=== PATIENT | male | born 1985 | race Caucasian/White ===

== ENCOUNTER → 2018-05-15 | Outpatient (CLI) | payer OTHER ==
--- NOTE | 2018-05-15 11:25 | US ---
EXAMINATION TYPE: US venous doppler duplex LE BI DATE OF EXAM: 05/15/2018 10:33 AM COMPARISON: NONE CLINICAL HISTORY: R22.42,R22.41 Left/right lower limb edema. Bilateral leg swelling. On testosterone every 2 weeks. SIDE PERFORMED: Bilateral TECHNIQUE: The lower extremity deep venous system is examined utilizing real time linear array sonog trey with graded compression, doppler sonography and color-flow sonography. VESSELS IMAGED: External Iliac Vein (EIV) Common Femoral Vein Deep Femoral Vein Greater Saphenous Vein * Femoral Vein Popliteal Vein Small Saphenous Vein * Proximal Calf Veins (* superficial vessels) Limited exam due to patient body habitus Right Leg: Negative for DVT Left Leg: Negative for DVT Grayscale, color doppler, spectral doppler imaging performed of the deep veins of the lower extremiti es. There is normal flow, compressibility, vascular waveforms. IMPRESSION: No sonographic evidence of deep venous thrombosis within the bilateral lower extremities .
== END | disposition home or self-care (01) ==
LOC: RADUSWWP 10:31
PROVIDERS: ATTEND Family Medicine
DX: R22.43 Localized swelling, mass and lump, lower limb, bilateral (principal)
CPT/HCPCS: 93970

== ENCOUNTER → 2018-06-03 | Outpatient (CLI) | payer OTHER ==
--- NOTE | 2018-06-04 09:46 | ECHOF ---
Referral Reason:R07.9 Chest pain MEASUREMENTS -------- HEIGHT: 175.3 cm WEIGHT: 158.8 kg BP: RVIDd: 3.0 cm (< 3.3) IVSd: 1.3 cm (0.6 - 1.1) LVIDd: 5.2 cm (3.9 - 5.3) LVPWd: 1.2 cm (0.6 - 1.1) IVSs: 1.5 cm LVIDs: 3.2 cm LVPWs: 1.5 cm LAESV Index (A-L): 22.43 ml/m Ao Diam: 3.3 cm (2.0 - 3.7) AV Cusp: 2.1 cm (1.5 - 2.6) LA Diam: 3.6 cm (2.7 - 3.8) EPSS: 0.3 cm MV E Mushtaq: 0.93 m/s MV DecT: 221 ms MV A Mushtaq: 0.64 m/s MV E/A Ratio: 1.45 RAP: 5.00 mmHg RVSP: 10.93 mmHg MV EF SLOPE: 117.78 mm/s (70 - 150) MV EXCURSION: 2.30 cm (> 18.000) FINDINGS -------- Sinus rhythm. This was a technically difficult study with suboptimal views. The left ventricular size is normal. There is mild concentric left ventricular hypertrophy. Overa ll left ventricular systolic function is normal with, an EF between 55 - 60 %. The right ventricle is normal in size and function. Normal LA size by volume 22+/-6 ml/m2. The right atrium is normal in size. 3ml of Lumason was utilized for enhancement of images. The aortic valve is trileaflet, and appears structurally normal. No aortic stenosis or regurgitation. The mitral valve is normal. There is trace to mild mitral regurgitation. Trace tricuspid regurgitation present. Right ventricular systolic pressure is normal at < 35 mmHg. There is no evidence of pulmonary hypertension. Trace/mild (physiologic) pulmonic regurgitation. The aortic root size is normal. Normal inferior vena cava with normal inspiratory collapse consistent with estimated right atrial pre ssure of 5 mmHg. There is no pericardial effusion. CONCLUSIONS -------- 1. Sinus rhythm. 2. This was a technically difficult study with suboptimal views. 3. The left ventricular size is normal. 4. There is mild concentric left ventricular hypertrophy. 5. Overall left ventricular systolic function is normal with, an EF between 55 - 60 %. 6. Normal LA size by volume 22+/-6 ml/m2. 7. 3ml of Lumason was utilized for enhancement of images. 8. The aortic valve is trileaflet, and appears structurally normal. No aortic stenosis or regurgitati on. 9. There is trace to mild mitral regurgitation. 10. Trace tricuspid regurgitation present. 11. Right ventricular systolic pressure is normal at < 35 mmHg. 12. There is no evidence of pulmonary hypertension. 13. Trace/mild (physiologic) pulmonic regurgitation. 14. The aortic root size is normal. 15. There is no pericardial effusion. [employer]ISTRY DIRECTOR: Amandeep Gautam RDCS
== END | disposition home or self-care (01) ==
LOC: RADECHMAIN 08:35
PROVIDERS: ATTEND Family Medicine
DX: I34.0 Nonrheumatic mitral (valve) insufficiency (principal); I51.7 Cardiomegaly
CPT/HCPCS: C8929; Q9950; 93306

== ENCOUNTER 2019-08-05 07:18 | Inpatient (IN) | payer OTHER ==
[2019-08-05] MEDS ORDERED: KETOROLAC 30 MG/ML 1 ML VIAL IVP STA (07:43)
--- NOTE | 2019-08-05 08:15 | ED ---
Chest Pain HPI - General Chief Complaint: Chest Pain Stated Complaint: chest pain, SOB Time Seen by Provider: 08/05/19 07:24 Source: patient, RN notes reviewed Mode of arrival: ambulatory Limitations: no limitations - History of Present Illness Initial Comments: This is a 34-year-old male with a benign history other than previous episodes of chest pain he is a smoker who states he had the onset around 3 AM this morning of right upper quadrant lower chest pain was sharp in nature 7/10 severity does seem to go to his back into his right shoulder blade he states. It increases with deep breathing and certain movements he had no fevers chills nausea vomiting sweats no phlegm production he does have a dry cough or other symptoms reported. No known history of GI complaints. MD Complaint: chest pain - Related Data Home Medications Medication Instructions Recorded Confirmed Albuterol Sulfate [Proair Hfa] 2 puff INHALATION RT-Q6H PRN 08/05/19 08/05/19 Ibuprofen [Motrin Ib] 400 mg PO Q6H PRN 08/05/19 08/05/19 Allergies Allergy/AdvReac Type Severity Reaction Status Date / Time No Known Allergies Allergy Verified 08/05/19 08:59 Review of Systems ROS Statement: Those systems with pertinent positive or pertinent negative responses have been documented in the HPI. ROS Other: All systems not noted in ROS Statement are negative. EKG Findings - EKG Comments: EKG Findings:: Ventricular rate is 79 TX interval 120, QRS 112, QT/QTC 374/428 - EKG Results: EKG: interpreted by LAUREN WALSH, sinus rhythm, normal axis, normal QRS, normal ST/T, no acute changes Past Medical History Past Medical History: Asthma, Thyroid Disorder Additional Past Medical History / Comment(s): Hemorrhoids; Folliculosis History of Any Multi-Drug Resistant Organisms: None Reported Past Surgical History: No Surgical Hx Reported Past Psychological History: ADD/ADHD, Anxiety, Bipolar, Depression, PTSD Smoking Status: Current every day smoker Past Alcohol Use History: None Reported Past Drug Use History: Marijuana General Exam - General Exam Comments Initial Comments: This a well-developed well-nourished awake alert oriented 3 male Limitations: no limitations General appearance: alert, anxious, in distress Head exam: Present: atraumatic, normocephalic, normal inspection Eye exam: Present: normal appearance, PERRL, EOMI. Absent: scleral icterus, conjunctival injection, periorbital swelling ENT exam: Present: normal exam, mucous membranes moist Neck exam: Present: normal inspection, full ROM, other (No stridor JVD or bruits). Absent: tenderness, meningismus, lymphadenopathy Respiratory exam: Present: decreased breath sounds. Absent: respiratory distress, wheezes, rales, rhonchi, stridor Cardiovascular Exam: Present: regular rate, normal rhythm, normal heart sounds. Absent: systolic murmur, diastolic murmur, rubs, gallop, clicks GI/Abdominal exam: Present: soft, tenderness (Right upper quadrant tenderness palpation no guarding rebound masses or bruits obese abdomen is demonstrated), normal bowel sounds. Absent: distended, guarding, rebound, rigid Rectal exam: Present: deferred Extremities exam: Present: normal inspection, full ROM, normal capillary refill. Absent: tenderness, pedal edema, joint swelling, calf tenderness Back exam: Present: normal inspection Neurological exam: Present: alert, oriented X3, CN II-XII intact Psychiatric exam: Present: normal affect, normal mood Skin exam: Present: warm, dry, intact, normal color. Absent: rash Course Vital Signs 08/05/19 08/05/19 08/05/19 07:20 07:31 08:00 Temperature 97.9 F Pulse Rate 78 73 Respiratory 18 21 20 Rate Blood Pressure 140/82 144/79 144/79 O2 Sat by Pulse 97 94 L Oximetry 08/05/19 08/05/19 08:30 08:52 Temperature 98.0 F 98.0 F Pulse Rate 71 71 Respiratory 20 20 Rate Blood Pressure 154/100 154/100 O2 Sat by Pulse 97 97 Oximetry Procedures - Smoking Cessation Time Spent Discussing Smoking Cessation w/Patient (Minutes): 3 Patient Acknowledges Need for Cessation: No Chest Pain MDM - MDM I did review the imaging and report evidence of mildly dilated common bile duct limited due to patient's habitus. X-rays unremarkable. Patient still has pain especially with palpation elevated white blood cell count left shift the clinical presentation is consistent with acute cholecystitis. I did discuss the case with Dr. Wood the patient will be admitted with consultation to Dr. Pate Disposition Clinical Impression: Acute cholecystitis, Atypical chest pain Disposition: ADMITTED IP TO THIS [facility] Condition: Fair Referrals: Kyle Wood MD [Primary Care Provider] - 1-2 days
[2019-08-05 08:18] LABS: ALT 37 U/L (21-72); AST 27 U/L (17-59); African American GFR (CKD) >90 (>60 ml/min/1.73 sqM); Alkaline Phosphatase 108 U/L (38-126); Anion Gap 8 mmol/L; Blood Urea Nitrogen 13 mg/dL (9-20); Calcium 9.2 mg/dL (8.4-10.2); Carbon Dioxide 27 mmol/L (22-30); Chloride 107 mmol/L (98-107); Creatine Kinase 144 U/L (55-170); Glucose 104 mg/dL (74-99); Potassium 4.3 mmol/L (3.5-5.1); Sodium 142 mmol/L (137-145); Total Bilirubin 0.5 mg/dL (0.2-1.3); Total Protein 7.5 g/dL (6.3-8.2)
[2019-08-05 08:19] LABS: Basophils # (A) 0.2 k/uL (0-0.2); Basophils % (A) 1 %; Eosinophils # (A) 0.5 k/uL (0-0.7); Eosinophils % (A) 4 %; HCT 44.2 % (39.0-53.0); HGB 14.8 gm/dL (13.0-17.5); Lymphocytes # (A) 2.8 k/uL (1.0-4.8); Lymphocytes % (A) 21 %; MCH 30.5 pg (25.0-35.0); MCHC 33.4 g/dL (31.0-37.0); MCV 91.3 fL (80.0-100.0); Mean Platelet Volume 7.1; Monocytes # (A) 0.8 k/uL (0-1.0); Monocytes % (A) 6 %; Neutrophils # (A) 8.7 k/uL (1.3-7.7); Neutrophils % (A) 66 %; Platelet Count 289 k/uL (150-450); RBC 4.84 m/uL (4.30-5.90); RDW 13.2 % (11.5-15.5); WBC 13.3 k/uL (3.8-10.6)
--- NOTE | 2019-08-05 08:20 | XR ---
EXAMINATION TYPE: XR chest 2V DATE OF EXAM: 08/05/2019 COMPARISON: 10/21/2013 HISTORY: Chest pain TECHNIQUE: Frontal and lateral views of the chest are obtained. FINDINGS: There is no focal air space opacity. No evidence for pneumothorax. No pleural effusion. The cardiac silhouette size is within normal limits. The osseous structures are grossly intact. IMPRESSION: 1. No acute cardiopulmonary process.
[2019-08-05 08:32] LABS: D-Dimer 0.33 mg/L FEU (<0.60); INR 0.9 (<1.2); Partial Thromboplastin Time 26.8 sec (22.0-30.0); Prothrombin Time 10.2 sec (9.0-12.0)
--- NOTE | 2019-08-05 09:00 | US ---
EXAMINATION TYPE: US gallbladder DATE OF EXAM: 08/05/2019 COMPARISON: CT dated 07/30/2016 CLINICAL HISTORY: Right upper quadrant pain, radiation to the right . large body habitus 360lbs, RUQ pain today with right shoulder pain EXAM MEASUREMENTS: Liver Length: 19.9 cm Gallbladder Wall: 0.2 cm CBD: 0.6 cm Right Kidney: 10.8 x 5.1 x 6.0 cm limited imaging due to body habitus and bowel gas Pancreas: portions seen appear wnl Liver: very difficult to penetrate, enlarged, mostly intercostal imaging Gallbladder: wnl Evidence for sonographic Motley's sign: no CBD: Mildly dilated Right Kidney: wnl,, cortical measured differentiation is maintained. Exam is limited by patient body habitus. No ascites. IMPRESSION: Correlate for hepatic steatosis. There is hepatomegaly. Mild dilation of the common hepat ic duct. Limited exam.
[2019-08-05] MEDS ORDERED: PIPERACILLIN-TAZOBACTAM 3.375 GM in SODIUM CHLORIDE 0.9% 100 ML IVPB STA (10:45)
[2019-08-05] MEDS ORDERED: fentaNYL (PF) 50 MCG/ML 2 ML AMP IV STA (10:45)
[2019-08-05] MEDS ORDERED: ONDANSETRON 4 MG/2 ML VIAL IVP PRN (10:48)
[2019-08-05] MEDS ORDERED: NALOXONE 0.4 MG/ML 1 ML VIAL IV PRN (10:48)
[2019-08-05] MEDS ORDERED: ALBUTEROL NEBULIZED 2.5 MG/3 ML INHALATION PRN (10:51)
[2019-08-05] MEDS: SODIUM CHLORIDE 0.9% 1,000 ML IV SCH ×2 (11:20→22:16)
--- NOTE | 2019-08-05 17:53 | NM ---
EXAMINATION TYPE: NM hepatobiliary w CCK DATE OF EXAM: 08/05/2019 COMPARISON: NONE INDICATION: Cholecystitis TECHNIQUE: After the intravenous administration of 5.2 mCi Tc 99m Mebrofenin hepatobiliary scintigrap hy is performed. Images were obtained immediately post injection. FINDINGS: There is prompt uptake and excretion of radiotracer by the liver. Extrahepatic ducts are identified at 8 minutes. The gallbladder is visualized within 4 minutes. Small bowel activity is noted within 18 minutes. At one hour CCK was administered, patient was injected with 3.4 mcg of Kinevac, and gallbladder eject ion fraction is calculated at 79% %, which is in the normal range.. (Normal >35% and <80%.). IMPRESSION: 1. Normal hepatobiliary scan. Ejection fraction is at the upper limits of normal.
[2019-08-05] MEDS: HYDROmorphone 1 MG/ML 1 ML SYRINGE IVP PRN ×2 (18:05→22:12)
[2019-08-05] MEDS: PIPERACILLIN-TAZOBACTAM 3.375 GM in SODIUM CHLORIDE 0.9% 100 ML IVPB SCH (18:05)
[2019-08-05 18:19] LABS: Glucose,Whole Blood 87 mg/dL (75-99)
[2019-08-05 20:24] LABS: Glucose,Whole Blood 125 mg/dL (75-99)
[2019-08-06] MEDS: HYDROmorphone 1 MG/ML 1 ML SYRINGE IVP PRN ×5 (02:05→23:45)
[2019-08-06] MEDS: PIPERACILLIN-TAZOBACTAM 3.375 GM in SODIUM CHLORIDE 0.9% 100 ML IVPB SCH ×4 (02:35→23:41)
[2019-08-06] MEDS: SODIUM CHLORIDE 0.9% 1,000 ML IV SCH ×3 (05:03→20:47)
[2019-08-06 06:47] LABS: Glucose,Whole Blood 104 mg/dL (75-99)
[2019-08-06] MEDS: NICOTINE 21MG/24HR PATCH TRANSDERM SCH (07:37)
[2019-08-06] MEDS: PANTOPRAZOLE 40 MG/10 ML VIAL IV SCH (07:37)
--- NOTE | 2019-08-06 11:07 | P.CRDCN ---
History of Present Illness History of present illness: This is a pleasant 34-year-old male past medical history significant for asthma, gastroesophageal reflux disease, bilateral DVT's while receiving testosterone injections, schizophrenia, morbid obesity and chronic nicotine dependence. He denies prior history of hypertension, dyslipidemia, diabetes mellitus or coronary artery disease. We have been asked to see him in consultation for preoperative evaluation secondary to sinus pauses noted on telemetry. He presented to the hospital with symptoms of right upper quadrant pain. He states the pain is sharp and radiates up to the right shoulder and is associated with nausea. He underwent an ultrasound of his gallbladder revealing hepatic steatosis, hepatomegaly and mild dilation of the common hepatic duct. HIDA scan reveals a normal hepatobiliary scan with ejection fraction calculated at 79%. EKG reveals sinus mechanism with no acute ST or T wave abnormalities noted heart rate of 79. Telemetry tracings reveal he is having sinus pauses longest being 3 seconds. These pauses are variable times. It is unclear if he is sleeping at the time. The pauses are occurring during awake hours however this morning he had one that was 2.5 seconds and he states that time he was sitting up in the chair sleeping. He denies symptoms of chest pain, shortness of breath, dizziness or palpitations. Laboratory data reviewed, WBC 13.3, hemoglobin 14.8, platelets 289, d-dimer 0.33, sodium 142, potassium 4.3, creatinine 0.71, magnesium 2.0, cardiac enzymes negative 1, proBNP 34, TSH 4.47. Daily medications include albuterol and Motrin as needed. At the time of my exam: CONSTITUTIONAL: Denies fever. Denies chills. EYES: Denies blurred vision. Denies vision changes. Denies eye pain. EARS, NOSE, MOUTH & THROAT: Denies headache. Denies sore throat. Denies ear pain. CARDIOVASCULAR: Denies chest pain. Denies shortness of breath. Denies orthopnea. Denies PND. Denies palpitations. RESPIRATORY: Denies cough. GASTROINTESTINAL: Complains of right upper quadrant abdominal pain. Denies diarrhea. Denies constipation. Denies nausea. Denies vomiting. MUSCULOSKELETAL: Denies myalgias. INTEGUMENTARY: Denies pruitis. Denies rash. NEUROLOGIC: Denies numbness. Denies tingling. Denies weakness. PSYCHIATRIC: Denies anxiety. Denies depression. ENDOCRINE: Denies fatigue. Denies weight change. Denies polydipsia. Denies polyurina. GENITOURINARY: Denies burning, hematuria or urgency with micturation. HEMATOLOGIC: Denies history of anemia. Denies bleeding. Blood pressure 117/60 heart rate 78 afebrile maintaining oxygen saturation on room air GENERAL: This is a 34-year-old male in no apparent distress at the time of my examination. Obese. HEENT: Head is atraumatic, normocephalic. Pupils are equal, round. Sclerae ani cteric. Conjunctivae are clear. Mucous membranes of the mouth are moist. Neck is supple. There is no jugular venous distention. No carotid bruit is heard. LUNGS: Clear to auscultation no wheezes, rales or rhonchi. No chest wall tenderness is noted on palpation or with deep breathing. HEART: Regular rate and rhythm without murmurs, rubs or gallops. S1 and S2 heard. ABDOMEN: Soft, nontender. Bowel sounds are heard. No organomegaly noted. EXTREMITIES: No evidence of peripheral edema and no calf tenderness noted. VASCULAR: Radial and dorsalis pedis pulses palpated, no evidence of clubbing. NEUROLOGIC: Patient is awake, alert and oriented x3. ASSESSMENT Abdominal pain Sinus pause, less than 3 seconds Morbid obesity, BMI 51 PLAN Telemetry tracings reviewed. Likely related to underlying sleep apnea. The patient has been advised to have a sleep study performed as an outpatient. We will continue to monitor on telemetry for an additional 24 hours. Obtain 2-D echocardiogram and Doppler study to assess cardiac structure and function. Thank you kindly for this consultation. Nurse Practitioner note has been reviewed, I agree with a documented findings and plan of care. Patient was seen and examined. Past Medical History Past Medical History: Asthma, GERD/Reflux, Pneumonia, Syncope, Thyroid Disorder Additional Past Medical History / Comment(s): DVT bilateral legs-was on coumadin for one year-now discontinued, chronic low back and bilateral hip pain, hypothyroid, hemorrhoids. History of Any Multi-Drug Resistant Organisms: None Reported Past Surgical History: No Surgical Hx Reported Additional Past Surgical History / Comment(s): L orbital trauma with surgery, colonoscopy-normal Past Anesthesia/Blood Transfusion Reactions: No Reported Reaction Smoking Status: Current every day smoker - Past Family History Father Family Medical History: Hyperlipidemia Mother Family Medical History: Asthma, Diabetes Mellitus, Hyperlipidemia, Hypertension Medications and Allergies Home Medications Medication Instructions Recorded Confirmed Type Albuterol Sulfate [Proair Hfa] 2 puff INHALATION RT-Q6H PRN 08/05/19 08/05/19 History Ibuprofen [Motrin Ib] 400 mg PO Q6H PRN 08/05/19 08/05/19 History Allergies Allergy/AdvReac Type Severity Reaction Status Date / Time No Known Allergies Allergy Verified 08/05/19 08:59 Physical Exam Vitals: Vital Signs Temp Pulse Pulse Resp BP BP Pulse Ox 08/06/19 08:00 78 79 18 08/06/19 07:30 98.1 F 78 18 117/60 94 L 08/06/19 05:12 98.3 F 90 18 129/71 92 L 08/06/19 04:00 98.3 F 90 18 129/71 92 L 08/06/19 00:00 97.9 F 66 18 129/82 94 L 08/05/19 19:50 79 18 08/05/19 18:46 98.2 F 79 18 138/90 96 08/05/19 18:23 68 18 08/05/19 16:00 98.2 F 79 138/90 96 08/05/19 12:00 68 18 08/05/19 11:46 97.6 F 68 18 122/80 95 Intake and Output 08/05/19 08/06/19 08/06/19 22:59 06:59 14:59 Intake Total 240 Balance 240 Intake: Oral 240 Other: Voiding Method Toilet Toilet Toilet # Voids 1 Results 08/05/19 07:50 08/05/19 07:50 Current Medications Generic Name Dose Route Start Last Admin Trade Name Freq PRN Reason Stop Dose Admin Albuterol Sulfate 2.5 mg 08/05/19 10:51 Ventolin Nebulized INHALATION RT-Q6H PRN Shortness Of Breath Hydromorphone HCl 1 mg 08/05/19 10:52 08/06/19 07:36 Dilaudid IVP 1 mg Q4HR PRN Administration Pain Sodium Chloride 1,000 mls @ 125 mls/hr 08/05/19 11:00 08/06/19 05:03 Saline 0.9% IV Not Given .Q8H NEISHA Piperacillin Sod/Tazobactam 100 mls @ 25 mls/hr 08/05/19 17:00 08/06/19 07:39 Sod 3.375 gm/ Sodium Chloride IVPB 25 mls/hr Q8HR NEISHA Administration Naloxone HCl 0.2 mg 08/05/19 10:48 Narcan IV Q2M PRN Opioid Reversal Nicotine 1 patch 08/06/19 09:00 08/06/19 07:37 Habitrol 21mg/24hr Patch TRANSDERM Not Given DAILY NEISHA Ondansetron HCl 4 mg 08/05/19 10:48 Zofran IVP Q8HR PRN Nausea And Vomiting Pantoprazole Sodium 40 mg 08/06/19 09:00 08/06/19 07:37 Protonix IV 40 mg DAILY NEISHA Administration Intake and Output 08/05/19 08/06/19 08/06/19 22:59 06:59 14:59 Intake Total 240 Balance 240 Intake: Oral 240 Other: Voiding Method Toilet Toilet Toilet # Voids 1 08/05/19 07:50 08/05/19 07:50
[2019-08-06 11:51] LABS: Glucose,Whole Blood 107 mg/dL (75-99)
--- NOTE | 2019-08-06 13:34 | P.GSCN ---
History of Present Illness Consult date: 08/06/19 Reason for Consult: Right upper quadrant pain Requesting physician: Mj Stafford History of present illness: CHIEF COMPLAINT: Right upper quadrant pain HISTORY OF PRESENT ILLNESS: 34-year-old male who presented to the emergency room chief complaint of abdominal pain. Patient reports he began having right upper quadrant pain yesterday around 0300 that woke him up while he was sleeping. He reports some nausea but denies emesis. Denies diarrhea or constipation. Patient denies previous episodes of this type of pain. PAST MEDICAL HISTORY: See list. PAST SURGICAL HISTORY: See list. SOCIAL HISTORY: No illicit drug use. REVIEW OF SYSTEMS: CONSTITUTIONAL: Denies fever or chills. HEENT: Denies blurred vision, vision changes, or eye pain. Denies hemoptysis CARDIOVASCULAR: Denies chest pain or pressure. RESPIRATORY: No shortness of breath. GASTROINTESTINAL: Refer to HPI for pertinent findings HEMATOLOGIC: Denies bleeding disorders. Reports history of DVT GENITOURINARY: Denies any blood in urine. SKIN: Denies pruitis. Denies rash. PHYSICAL EXAM: VITAL SIGNS: Reviewed. GENERAL: Well-developed in no acute distress. HEENT: No sclera icterus. Extraocular movements grossly intact. Moist buccal mucosa. Head is atraumatic, normocephalic. ABDOMEN: Soft. Nondistended. Tenderness on palpation of right upper quadrant. Positive bowel sounds. No peritoneal signs NEUROLOGIC: Alert and oriented. Cranial nerves II through XII grossly intact. LABORATORY DATA: WBC 13.3. Hemoglobin 14.8. Platelet count 289. D-dimer 0.33. Sodium 142. Potassium 4.3. BUN 13. Crit 0.71. Bilirubin 0.5. AST 27. ALT 37. IMAGIN. Ultrasound gallbladder: Correlate for hepatic steatosis. There is hepatomegaly. Mild dilation of common hepatic duct. 2. HIDA scan: Reveals ejection fraction of 79%. ASSESSMENT: 1. Right upper quadrant abdominal pain 2. Clinical features of biliary dyskinesia with HIDA scan revealing ejection fraction of upper limits of normal at 79% 3. Leukocytosis 4. History of DVT PLAN: Clear liquid diet. NPO at midnight. Pain control Incentive spirometry Activity as tolerated Monitor WBC. Continue Zosyn Patient having 2-3 second pauses this morning on telemetry. Consult cardiology for evaluation and surgical clearance. Patient will tentatively be scheduled for laparoscopic cholecystectomy tomorrow Nurse practitioner note has been reviewed by physician. Signing provider agrees with the documented findings, assessment, and plan of care. Past Medical History Past Medical History: Asthma, GERD/Reflux, Pneumonia, Syncope, Thyroid Disorder Additional Past Medical History / Comment(s): DVT bilateral legs-was on coumadin for one year-now discontinued, chronic low back and bilateral hip pain, hypothyroid, hemorrhoids. History of Any Multi-Drug Resistant Organisms: None Reported Past Surgical History: No Surgical Hx Reported Additional Past Surgical History / Comment(s): L orbital trauma with surgery, colonoscopy-normal Past Anesthesia/Blood Transfusion Reactions: No Reported Reaction Smoking Status: Current every day smoker - Past Family History Father Family Medical History: Hyperlipidemia Mother Family Medical History: Asthma, Diabetes Mellitus, Hyperlipidemia, Hypertension Medications and Allergies Home Medications Medication Instructions Recorded Confirmed Type Albuterol Sulfate [Proair Hfa] 2 puff INHALATION RT-Q6H PRN 08/05/19 08/05/19 History Ibuprofen [Motrin Ib] 400 mg PO Q6H PRN 08/05/19 08/05/19 History Allergies Allergy/AdvReac Type Severity Reaction Status Date / Time No Known Allergies Allergy Verified 08/05/19 08:59 Surgical - Exam Vital Signs Temp Pulse Resp BP Pulse Ox 97.9 F 78 18 140/82 97 08/05/19 07:20 08/05/19 07:20 08/05/19 07:20 08/05/19 07:20 08/05/19 07:20 Results - Labs 08/05/19 07:50 08/05/19 07:50 Abnormal Lab Results - Last 24 Hours (Table) 08/05/19 08/06/19 Range/Units 20:22 06:45 POC Glucose (mg/dL) 125 H 104 H (75-99) mg/dL
--- NOTE | 2019-08-06 13:40 | ECHOF ---
Referral Reason:sinus pauses, cp MEASUREMENTS -------- HEIGHT: 177.8 cm WEIGHT: 163.3 kg BP: 117/60 IVSd: 1.3 cm (0.6 - 1.1) LVIDd: 4.6 cm (3.9 - 5.3) LVPWd: 1.2 cm (0.6 - 1.1) IVSs: 1.6 cm LVIDs: 3.6 cm LVPWs: 1.5 cm LAESV Index (A-L): 25.34 ml/m Ao Diam: 3.0 cm (2.0 - 3.7) AV Cusp: 2.5 cm (1.5 - 2.6) MV EXCURSION: 20.468 mm (> 18.000) MV EF SLOPE: 118 mm/s (70 - 150) EPSS: 0.4 cm MV E Mushtaq: 1.23 m/s MV DecT: 193 ms MV A Mushtaq: 0.55 m/s MV E/A Ratio: 2.25 FINDINGS -------- Resting bradycardia (HR<60bpm). This was a technically difficult study with suboptimal views. Morbid Obesity The left ventricular size is normal. There is moderate concentric left ventricular hypertrophy. O verall left ventricular systolic function is low-normal with, an EF between 50 - 55 %. The diastoli c filling pattern is normal for the age of the patient 9.57. The right ventricle is normal in size. Normal LA size by volume 22+/-6 ml/m2. The right atrial size is normal. 5.0mg of Lumason was utilized for enhancement of images Interatrial and interventricular septum intact. There is no evidence of aortic regurgitation. There is no evidence of aortic stenosis. No mitral regurgitation. Possible Vegetation attached to mvl The tricuspid valve was not well visualized. Unable to estimate RVSP due to inadequate TR jet spect ral doppler profile. There is no pulmonic regurgitation present. The aortic root size is normal. IVC Not well visulized. There is no pericardial effusion. CONCLUSIONS -------- 1. Resting bradycardia (HR<60bpm). 2. This was a technically difficult study with suboptimal views. 3. Morbid Obesity 4. The left ventricular size is normal. 5. There is moderate concentric left ventricular hypertrophy. 6. Overall left ventricular systolic function is low-normal with, an EF between 50 - 55 %. 7. The diastolic filling pattern is normal for the age of the patient 9.57 8. The right ventricle is normal in size. 9. Normal LA size by volume 22+/-6 ml/m2. 10. The right atrial size is normal. 11. 5.0mg of Lumason was utilized for enhancement of images 12. Interatrial and interventricular septum intact. 13. There is no evidence of aortic regurgitation. 14. There is no evidence of aortic stenosis. 15. No mitral regurgitation. 16. Possible Vegetation attached to mvl 17. The tricuspid valve was not well visualized. 18. Unable to estimate RVSP due to inadequate TR jet spectral doppler profile. 19. There is no pulmonic regurgitation present. 20. The aortic root size is normal. 21. IVC Not well visulized. 22. There is no pericardial effusion. CABINET ABRASIVE SANDBLASTER: Maryse Barger RDCS
[2019-08-06 16:42] LABS: Glucose,Whole Blood 104 mg/dL (75-99)
[2019-08-06] MEDS: HEPARIN SODIUM,PORCINE 5,000 UNIT/ML 1 ML VIAL SQ SCH ×2 (16:46→23:47)
--- NOTE | 2019-08-06 19:23 | HP ---
HISTORY AND PHYSICAL CHIEF COMPLAINT: 1-day history of right upper quadrant pain. HISTORY OF PRESENT ILLNESS: This gentleman woke up with severe right upper quadrant pain. Nothing would relieve it. He came to emergency room where it was felt he probably had an acute cholecystitis. He was nauseated and did vomit. His white count was elevated in the emergency room at 13,500. REVIEW OF SYSTEMS: He has a had no jaundice, acholic stools, no history of liver disease, chest pain, shortness of breath, cough, nausea, vomiting, hematemesis, melena, hematochezia, jaundice, hepatitis, renal failure, dysuria, frequency, urgency, dark urine, diabetes, etc. Past medical history, family history and personal and social histories reveal he is not allergic to any medication. He is not really taking anything either. He does smoke. He does not drink. PHYSICAL EXAMINATION: Blood pressure 124/88, pulse of 80, respirations of 18. He is afebrile. In general, he appeared to be obese, in no acute distress. Skin color is normal. Skin is warm, dry. Lymph nodes not enlarged. Head, ears, eyes, nose, mouth, and throat were normal. Neck veins are not distended. Thyroid not enlarged. CHEST: Clear. Cardiac exam is normal. Abdomen is soft and a little bit tender in the right upper quadrant. There are no masses. Bowel sounds present. Extremities normal. Neurologically he is intact. IMPRESSION: He was admitted to the hospital with diagnoses of: 1. Right upper quadrant pain. 2. Possible cholecystitis. PLAN: 1. Bed rest. 2. IV fluids. 3. General surgery consult. SOTERO / JUSTIN: [id number] /
--- NOTE | 2019-08-06 19:32 | PN ---
PROGRESS NOTE CHIEF COMPLAINT: Right upper quadrant pain. HISTORY OF PRESENT ILLNESS: This gentleman is still having some discomfort. He has been seen by Surgery and he is going to the operating room. PHYSICAL EXAMINATION: Chest is clear. Cardiac exam is normal and he is tender in the upper abdomen. Bowel sounds are present. IMPRESSION: Cholecystitis. PLAN: Surgery today. MMODL / IJN: [id number] /
[2019-08-06 20:08] LABS: Glucose,Whole Blood 93 mg/dL (75-99)
[2019-08-06] MEDS: LACTATED RINGERS 1,000 ML IV SCH (20:46)
[2019-08-07] MEDS: SODIUM CHLORIDE 0.9% 1,000 ML IV SCH ×2 (04:27→19:21)
[2019-08-07] MEDS: HYDROmorphone 1 MG/ML 1 ML SYRINGE IVP PRN ×3 (04:33→20:36)
[2019-08-07 05:31] LABS: Basophils # (A) 0.1 k/uL (0-0.2); Basophils % (A) 1 %; Eosinophils # (A) 0.5 k/uL (0-0.7); Eosinophils % (A) 4 %; HCT 40.6 % (39.0-53.0); HGB 13.4 gm/dL (13.0-17.5); Lymphocytes % (A) 28 %; MCH 30.7 pg (25.0-35.0); MCV 92.9 fL (80.0-100.0); Mean Platelet Volume 6.2; Monocytes # (A) 0.8 k/uL (0-1.0); Monocytes % (A) 5 %; Neutrophils # (A) 8.6 k/uL (1.3-7.7); Neutrophils % (A) 60 %; Platelet Count 299 k/uL (150-450); RBC 4.37 m/uL (4.30-5.90); WBC 14.3 k/uL (3.8-10.6)
[2019-08-07 07:12] LABS: Glucose,Whole Blood 102 mg/dL (75-99)
[2019-08-07] MEDS: HEPARIN SODIUM,PORCINE 5,000 UNIT/ML 1 ML VIAL SQ SCH ×2 (08:21→17:23)
[2019-08-07] MEDS: PANTOPRAZOLE 40 MG/10 ML VIAL IV SCH (08:21)
[2019-08-07] MEDS: NICOTINE 21MG/24HR PATCH TRANSDERM SCH (09:01)
[2019-08-07] MEDS: PIPERACILLIN-TAZOBACTAM 3.375 GM in SODIUM CHLORIDE 0.9% 100 ML IVPB SCH ×2 (09:01→17:22)
[2019-08-07] MEDS ORDERED: fentaNYL (PF) 50 MCG/ML 2 ML AMP ONE ×2 (09:45→14:26)
[2019-08-07] MEDS ORDERED: IV FLUID CONTINUATION 500 ML IV ONE (10:24)
[2019-08-07] MEDS: BENZOCAINE SPRAY 1 CAN MUCOUS MEM ONE ×2 (10:24→10:32)
[2019-08-07] MEDS ORDERED: fentaNYL (PF) 50 MCG/ML 2 ML AMP IV ONE (10:32)
[2019-08-07] MEDS ORDERED: MIDAZOLAM 2 MG/2 ML VIAL IVP ONE ×2 (10:32→10:34)
--- NOTE | 2019-08-07 10:46 | P.PCN ---
Date of Procedure: 08/07/19 Operative Findings: TRANSESOPHAGEAL ECHOCARDIOGRAM [facility] CONSULTANT: DEVEN ROBERTS MD, RPVI INDICATION: This is a pleasant 34-year-old gentleman who was admitted to the hospital initially with abdominal discomfort and was diagnosed with gallbladder disease. A transthoracic echocardiogram was performed and that revealed possible vegetation on the mitral valve. The ERVIN is for more clarification. SEDATION: Conscious sedation with a sedation length of 12 minutes COMPLICATION: None PROCEDURE DESCRIPTION: After obtaining an informed consent, the patient was brought to transesophageal echocardiogram room. Pulse oximetry and heart monitors were attached to the patient. The patient throat was sprayed using lidocaine. The patient was turned into left lateral position. After that a bite guard was placed. After an appropriate conscious sedation was initiated, the transesophageal echocardiogram was advanced through a bite guard into the mid esophagus. A 2-D echocardiogram images, color Doppler images, continuous wave images, pulse-wave images, of various cardiac structure were performed. After that the transesophageal echocardiogram probe was advanced into the stomach and fixed to obtain transgastric view was. The probe was brought into the mid esophagus. Inter-atrial septum was interrogated using 2D images, color Doppler images, and then contrast study. After that transesophageal echocardiogram was withdrawn out and upon withdrawing the descending thoracic aorta all the way up to the arch was evaluated. FINDING: The left ventricular dimension and systolic function appeared to be within normal limits. The ejection fraction appears to be in the range of 55-60%. The right ventricle appeared to be of normal size and function. The left atrium and right atrium appears to be mildly dilated. The left atrial appendage appeared to be free from any thrombus. The interatrial septum appeared to be intact by color flow Doppler. We did multiple agitated saline because IV was pulled out. The aortic valve is trileaflet valve without stenosis or regurgitation. The mitral valve seems to be intact without any evidence of vegetation. There was mild mitral regurgitation only. Tricuspid valve and pulmonic valve appeared to be within normal limits as well. The aortic root appeared to be within normal limits for dimension. No evidence of pericardial effusion seen. CONCLUSION: 1. No evidence of infectious endocarditis seen 2. Normal mitral valve leaflets without any vegetation 3. Normal aortic valve without any stenosis or regurgitation 4. Normal tricuspid valve and pulmonic valve 5. Normal left ventricular dimension and systolic function. The ejection fraction appeared to be in the range of 55-60% 6. Normal right ventricular dimension and systolic function 7. Mild biatrial enlargement 8. Normal left atrial appendage 9. Intact interatrial septum by color flow Doppler. Agitated saline was not performed 10 No evidence of pericardial effusion 11. Normal aortic root dimension
--- NOTE | 2019-08-07 10:52 | P.PN ---
Subjective This is a pleasant 34-year-old male past medical history significant for asthma, gastroesophageal reflux disease, bilateral DVT's while receiving testosterone injections, schizophrenia, morbid obesity and chronic nicotine dependence. He denies prior history of hypertension, dyslipidemia, diabetes mellitus or coronary artery disease. We have been asked to see him in consultation for preoperative evaluation secondary to sinus pauses noted on telemetry. He presented to the hospital with symptoms of right upper quadrant pain. Transthoracic echocardiogram revealed preserved LV systolic function with ejection fraction 50-55% there was a questionable vegetation on the mitral valve leaflet. He underwent ERVIN this morning for definitive diagnosis Revealed normal LV systolic function with ejection fraction 55-60% normal mitral valve with no vegetation or infective endocarditis seen. Telemetry tracings reviewed and reveal persistent sinus bradycardia with no significant pauses 2 more pacemaker implantation. Blood pressure 128/59 heart rate 70 afebrile maintaining oxygen saturation on nasal cannula. GENERAL: This is a 34-year-old male in no apparent distress at the time of my examination. Obese. HEENT: Head is atraumatic, normocephalic. Pupils are equal, round. Sclerae anicteric. Conjunctivae are clear. Mucous membranes of the mouth are moist. Neck is supple. There is no jugular venous distention. No carotid bruit is heard. LUNGS: Clear to auscultation no wheezes, rales or rhonchi. No chest wall tenderness is noted on palpation or with deep breathing. HEART: Regular rate and rhythm without murmurs, rubs or gallops. S1 and S2 heard. EXTREMITIES: No evidence of peripheral edema and no calf tenderness noted. ASSESSMENT Abdominal pain Sinus pause, less than 3 seconds Morbid obesity, BMI 51 PLAN Echocardiographic findings revealed normal LV systolic function with no evidence of vegetation on the mitral valve. Stable from a cardiac perspective to proceed with cholecystectomy as planned. This has been communicated to Dr. Vines. Outpatient sleep study recommended. Nurse Practitioner note has been reviewed, I agree with a documented findings and plan of care. Patient was seen and examined. Objective - Vital Signs Vital signs: Vital Signs Temp 97.5 F L 08/07/19 07:44 Pulse 70 08/07/19 10:43 Resp 18 08/07/19 07:44 BP 128/59 08/07/19 10:43 Pulse Ox 94 L 08/07/19 10:43 Intake & Output 08/06/19 08/07/1919 18:59 06:59 18:59 Intake Total 1580 50 Balance 1580 50 Intake: IV 50 Oral 980 Other 600 Other: Voiding Method Toilet Toilet Toilet # Voids 2 2 - Labs CBC & Chem 7: 08/07/19 05:15 08/05/19 07:50 Labs: Abnormal Lab Results - Last 24 Hours (Table) 08/06/19 08/06/19 08/07/19 Range/Units 11:48 16:40 05:15 WBC 14.3 H (3.8-10.6) k/uL Neutrophils # 8.6 H (1.3-7.7) k/uL POC Glucose (mg/dL) 107 H 104 H (75-99) mg/dL 08/07/19 Range/Units 07:09 WBC (3.8-10.6) k/uL Neutrophils # (1.3-7.7) k/uL POC Glucose (mg/dL) 102 H (75-99) mg/dL
[2019-08-07 11:46] LABS: Glucose,Whole Blood 81 mg/dL (75-99)
[2019-08-07] MEDS ORDERED: LACTATED RINGERS 1,000 ML IV ONE ×3 (13:07→15:20)
[2019-08-07] MEDS ORDERED: LIDOCAINE 1% INJ 10MG/ML (20 ML MDV) ONE (14:26)
[2019-08-07] MEDS ORDERED: NEOSTIGMINE 1 MG/ML 10 ML VIAL ONE (14:26)
[2019-08-07] MEDS ORDERED: MIDAZOLAM 2 MG/2 ML VIAL ONE (14:26)
[2019-08-07] MEDS ORDERED: diphenhydrAMINE 50 MG/ML 1 ML VIAL ONE (14:26)
[2019-08-07] MEDS ORDERED: GLYCOPYRROLATE 0.2 MG/ML 2 ML VIAL ONE (14:26)
[2019-08-07] MEDS ORDERED: SUCCINYLCHOLINE CHLORIDE VIAL 200 MG/10 ML VIAL IV ONE (14:26)
[2019-08-07] MEDS ORDERED: ROCURONIUM BROMIDE 10 MG/ML 10 ML VIAL IV ONE (14:26)
[2019-08-07] MEDS ORDERED: PROPOFOL 10 MG/ML 20 ML VIAL IV ONE (14:26)
[2019-08-07] MEDS ORDERED: KETOROLAC 30 MG/ML 1 ML VIAL ONE (14:26)
[2019-08-07] MEDS ORDERED: BUPIVACAINE (PF) 0.5% 30 ML VIAL SQ ONE (14:58)
--- NOTE | 2019-08-07 15:40 | P.OP ---
Date of Procedure: 08/07/19 Preoperative Diagnosis: Cholecystitis Postoperative Diagnosis: Cholecystitis Procedure(s) Performed: Laparoscopic cholecystectomy Anesthesia: APURVA Surgeon: Rickie Pate Estimated Blood Loss (ml): 5 Pathology: other (Gallbladder) Condition: stable Disposition: PACU Description of Procedure: The patient was placed on the operating table. The patient received a general endotracheal tube anesthesia. The patients abdomen was prepped and draped in the usual sterile fashion. Through an infraumbilical stab incision, the fascia of the anterior abdominal wall was grasped with a pair of Kochers and then the Veress needle was placed in the peritoneal cavity. Position of the Veress needle was confirmed with positive drop test. The abdomen was then insufflated. After adequate insufflation, the 10 mm trocar was placed in the peritoneal cavity. Following this the laparoscope was placed in the peritoneal cavity. The patient was placed in the head-up, right side up position and then a 5 mm trocar was placed in the right lateral and right subcostal position under direct visualization. A 8 mm trocar was placed in the epigastric position. The gallbladder was grasped in the fundus and infundibulum. Traction on the gallbladder was placed in the lateral and the cephalad positions. The triangle of Calot was visualized.. The cystic duct was bluntly dissected until the union of the cystic duct and common bile duct was seen. A critical view of safety was achieved. The cystic duct was then divided and sealed with the Harmonic scissors. A PDS Endoloop was then placed throughout the cystic duct stump. The cystic artery divided and sealed with the Harmonic scissors. The gallbladder was then removed from the liver bed using Harmonic scissors. The gallbladder was then extracted through the epigastric port site. Operative field was checked for any bleeding spots and Harmonic scissors was used to coagulate the liver bed. The abdomen was irrigated. The trocars were removed. The skin was closed using interrupted 3-0 Vicryl suture. Dermabond dressing were applied. The patient tolerated the procedure well.
[2019-08-07] MEDS ORDERED: HYDROmorphone 1 MG/ML 1 ML SYRINGE IM PRN (15:41)
[2019-08-07] MEDS ORDERED: HYDROmorphone 1 MG/ML 1 ML SYRINGE IVP ONE (16:11)
--- NOTE | 2019-08-07 17:53 | PN ---
PROGRESS NOTE DATE OF SERVICE: 08/07/2019 CHIEF COMPLAINT: Abdominal pain. HISTORY OF PRESENT ILLNESS: This gentleman did not get his surgery yesterday because there was an indication that he may have an abnormality on his mitral valve and he is going for a ERVIN today. He is still having quite a bit of abdominal discomfort. PHYSICAL EXAMINATION: He is tender over the epigastrium and right upper quadrant. Chest is clear. Cardiac exam is normal. IMPRESSION: 1. Possible abnormality in mitral valve. 2. Cholecystitis. PLAN: ERVIN today. MMODL / IJN: [id number] /
[2019-08-07] MEDS: LACTATED RINGERS 1,000 ML IV SCH (19:21)
[2019-08-07 20:56] LABS: Glucose,Whole Blood 108 mg/dL (75-99)
[2019-08-08] MEDS: HEPARIN SODIUM,PORCINE 5,000 UNIT/ML 1 ML VIAL SQ SCH ×4 (00:13→23:22)
[2019-08-08] MEDS: PIPERACILLIN-TAZOBACTAM 3.375 GM in SODIUM CHLORIDE 0.9% 100 ML IVPB SCH ×4 (00:59→23:21)
[2019-08-08] MEDS: HYDROmorphone 1 MG/ML 1 ML SYRINGE IVP PRN ×6 (01:00→23:22)
[2019-08-08] MEDS: SODIUM CHLORIDE 0.9% 1,000 ML IV SCH ×3 (05:21→20:16)
[2019-08-08 06:53] LABS: Glucose,Whole Blood 99 mg/dL (75-99)
[2019-08-08 07:30] LABS: Basophils # (A) 0.1 k/uL (0-0.2); Basophils % (A) 0 %; Eosinophils # (A) 0.3 k/uL (0-0.7); Eosinophils % (A) 2 %; HGB 12.9 gm/dL (13.0-17.5); Lymphocytes # (A) 2.5 k/uL (1.0-4.8); Lymphocytes % (A) 18 %; MCHC 32.3 g/dL (31.0-37.0); Mean Platelet Volume 6.8; Monocytes # (A) 0.7 k/uL (0-1.0); Monocytes % (A) 5 %; Neutrophils # (A) 10.2 k/uL (1.3-7.7); Neutrophils % (A) 73 %; Platelet Count 249 k/uL (150-450); RBC 4.29 m/uL (4.30-5.90); RDW 13.1 % (11.5-15.5); WBC 13.9 k/uL (3.8-10.6)
[2019-08-08] MEDS: PANTOPRAZOLE 40 MG/10 ML VIAL IV SCH (07:42)
[2019-08-08] MEDS: NICOTINE 21MG/24HR PATCH TRANSDERM SCH (07:43)
--- NOTE | 2019-08-08 08:34 | P.PN ---
Subjective Progress Note Date: 08/08/19 He is passing flatus. He is voiding spontaneously. He reports chest tightness at the right upper quadrant. He tolerated soft diet this morning. Pain is severe. ABD: Incisions clean, dry, and intact. Minimal bruising. PSYCH: Good mood PLAN: 1. Adjust pain management added Toradol and oral [place] 5/325. 2. Continue hospitalization. 3. Narcotic education performed. Objective - Vital Signs Vital signs: Vital Signs Temp 98.8 F 08/08/19 02:00 Pulse 89 08/08/19 02:00 Resp 18 08/07/19 16:46 BP 112/62 08/08/19 02:00 Pulse Ox 94 L 08/08/19 02:00 Intake & Output 08/07/19 08/08/19 08/08/19 18:59 06:59 18:59 Intake Total 1250 680 Output Total 10 Balance 1240 680 Weight 163.293 kg Intake: IV 1250 Intake, IV Titration 240 Amount Lactated Ringers 1,000 ml 240 @ 20 mls/hr IV .Q24H NEISHA Rx#:[id number] Oral 440 Output: Estimated Blood Loss 10 Other: Voiding Method Toilet Toilet Urinal # Voids 1 1 - Labs CBC & Chem 7: 08/08/19 06:56 08/05/19 07:50 Labs: Abnormal Lab Results - Last 24 Hours (Table) 08/07/19 08/08/19 Range/Units 20:55 06:56 WBC 13.9 H (3.8-10.6) k/uL RBC 4.29 L (4.30-5.90) m/uL Hgb 12.9 L (13.0-17.5) gm/dL Neutrophils # 10.2 H (1.3-7.7) k/uL POC Glucose (mg/dL) 108 H (75-99) mg/dL
[2019-08-08] MEDS: HYDROcodone/APAP 5-325MG 1 EACH TAB PO PRN ×3 (09:00→17:58)
[2019-08-08] MEDS: KETOROLAC 30 MG/ML 1 ML VIAL IVP SCH ×3 (09:01→20:13)
[2019-08-08 11:42] LABS: Glucose,Whole Blood 90 mg/dL (75-99)
--- NOTE | 2019-08-08 13:47 | PN ---
PROGRESS NOTE CHIEF COMPLAINT: Postop cholecystectomy. HISTORY OF PRESENT ILLNESS: This gentleman had his gallbladder removed yesterday. He is doing fairly well, but he is in quite a bit of discomfort. He has had no fever, chills, nausea, vomiting, etc. PHYSICAL EXAM: Laparotomy areas were dry. Chest is clear. Cardiac exam is normal. He is afebrile. IMPRESSION: Status post laparoscopic cholecystectomy. PLAN: Slowly increase activity and diet. He will probably be able to go home tomorrow. MMODL / IJN: [id number] /
[2019-08-08 16:40] LABS: Glucose,Whole Blood 110 mg/dL (75-99)
[2019-08-08 20:11] LABS: Glucose,Whole Blood 161 mg/dL (75-99)
[2019-08-08] MEDS: LACTATED RINGERS 1,000 ML IV SCH (20:14)
[2019-08-09] MEDS: HYDROcodone/APAP 5-325MG 1 EACH TAB PO PRN ×3 (01:39→13:55)
[2019-08-09] MEDS: KETOROLAC 30 MG/ML 1 ML VIAL IVP SCH ×2 (03:40→07:12)
[2019-08-09] MEDS: HYDROmorphone 1 MG/ML 1 ML SYRINGE IVP PRN (03:40)
[2019-08-09] MEDS: SODIUM CHLORIDE 0.9% 1,000 ML IV SCH ×2 (03:41→11:44)
[2019-08-09 07:06] LABS: Glucose,Whole Blood 104 mg/dL (75-99)
[2019-08-09 07:11] VITALS: BP 149/97; PULSE 81; RESP 17; TEMP 97.9
[2019-08-09] MEDS: HEPARIN SODIUM,PORCINE 5,000 UNIT/ML 1 ML VIAL SQ SCH (07:11)
[2019-08-09] MEDS: PIPERACILLIN-TAZOBACTAM 3.375 GM in SODIUM CHLORIDE 0.9% 100 ML IVPB SCH (07:12)
[2019-08-09] MEDS: NICOTINE 21MG/24HR PATCH TRANSDERM SCH (07:13)
[2019-08-09] MEDS: PANTOPRAZOLE 40 MG/10 ML VIAL IV SCH (07:13)
[2019-08-09 08:16] LABS: Basophils # (A) 0.1 k/uL (0-0.2); Basophils % (A) 1 %; Eosinophils # (A) 0.3 k/uL (0-0.7); Eosinophils % (A) 3 %; HCT 38.4 % (39.0-53.0); HGB 12.8 gm/dL (13.0-17.5); Lymphocytes # (A) 2.9 k/uL (1.0-4.8); Lymphocytes % (A) 25 %; MCH 30.5 pg (25.0-35.0); MCHC 33.4 g/dL (31.0-37.0); MCV 91.3 fL (80.0-100.0); Mean Platelet Volume 6.4; Monocytes # (A) 0.5 k/uL (0-1.0); Monocytes % (A) 5 %; Neutrophils # (A) 7.5 k/uL (1.3-7.7); Neutrophils % (A) 65 %; Platelet Count 271 k/uL (150-450); RDW 12.9 % (11.5-15.5); WBC 11.7 k/uL (3.8-10.6)
[2019-08-09 11:33] LABS: Glucose,Whole Blood 99 mg/dL (75-99)
--- NOTE | 2019-08-09 11:50 | P.PN ---
Subjective Progress Note Date: 08/09/19 Patient's pain markedly improved. He is tolerating diet. He is ambulating. He reports no nausea and vomiting. He had mild chest pain which was grounded by cardiology and found to be unremarkable. "I want to go home.". ABDOMEN: Incisions clean and intact ASSESSMENT: 1. Cholecystitis PLAN: 1. Patient clear for discharge from a surgical standpoint. Follow-up with Dr. Pate as outpatient. Objective - Vital Signs Vital signs: Vital Signs Temp 97.9 F 08/09/19 07:00 Pulse 81 08/09/19 07:00 Resp 17 08/09/19 09:15 BP 149/97 08/09/19 07:00 Pulse Ox 96 08/09/19 07:00 Intake & Output 08/08/19 08/09/19 08/09/19 18:59 06:59 18:59 Intake Total 580 Balance 580 Intake: Intake, IV Titration 180 Amount Lactated Ringers 1,000 ml 80 @ 20 mls/hr IV .Q24H NEISHA Rx#:[id number] Piperacillin-Tazobactam 3 100 .375 gm In Sodium Chloride 0.9% 100 ml @ 25 mls/hr IVPB Q8HR NEISHA Rx# :[id number] Oral 400 Other: Voiding Method Toilet Toilet Toilet Urinal Urinal Urinal # Voids 2 2 # Bowel Movements 1 - Labs CBC & Chem 7: 08/09/19 07:14 08/05/19 07:50 Labs: Abnormal Lab Results - Last 24 Hours (Table) 08/08/19 08/08/19 08/09/19 Range/Units 16:39 20:10 07:04 WBC (3.8-10.6) k/uL RBC (4.30-5.90) m/uL Hgb (13.0-17.5) gm/dL Hct (39.0-53.0) % POC Glucose (mg/dL) 110 H 161 H 104 H (75-99) mg/dL 08/09/19 Range/Units 07:14 WBC 11.7 H (3.8-10.6) k/uL RBC 4.20 L (4.30-5.90) m/uL Hgb 12.8 L (13.0-17.5) gm/dL Hct 38.4 L (39.0-53.0) % POC Glucose (mg/dL) (75-99) mg/dL
--- NOTE | 2019-08-09 21:32 | DS ---
DISCHARGE SUMMARY DATE OF SERVICE: 08/09/2019 CHIEF COMPLAINT: Abdominal pain. HISTORY OF PRESENT ILLNESS AND PHYSICAL EXAM: Details of this man's history and physical can be found in the initial workup. LABORATORY STUDIES: While he was in the hospital, he had laboratory studies, details of which can be found in the laboratory section of chart. COURSE IN HOSPITAL: After admission, he was placed on bedrest, started on intravenous fluids and analgesics. He was seen by Surgery and after he was cleared by Cardiology, he had uneventful laparoscopic cholecystectomy. He is doing well and it was felt he could go home on the and he will follow up in the office in a few days. FINAL DIAGNOSES: 1. Acute cholecystitis. 2. Obesity. OPERATIONS: Laparoscopic cholecystectomy. CONSULTATIONS: Surgery. He is improved. MMHARVIDNER / JUSTIN: [id number] /
== END 2019-08-09 14:02 | disposition home or self-care (01) | DRG 418 ==
LOC: EC 07:18 → 1SOBS 10:48 → OBSVTOIN 08-07 08:58 → 4SSUR 08-07 17:17
PROVIDERS: ADMIT Family Medicine; ATTEND Family Medicine
PROC: B246ZZ4 Ultrasonography of Right and Left Heart, Transesophageal (ICD-10-PCS; 2019-08-07)
PROC: 0FT44ZZ Resection of Gallbladder, Percutaneous Endoscopic Approach (ICD-10-PCS; principal; 2019-08-07 10:15)
DX: K81.0 Acute cholecystitis (principal); Z68.43 Body mass index [BMI] 50.0-59.9, adult; E03.9 Hypothyroidism, unspecified; E66.01 Morbid (severe) obesity due to excess calories; F17.200 Nicotine dependence, unspecified, uncomplicated; F20.9 Schizophrenia, unspecified; F31.9 Bipolar disorder, unspecified; F43.10 Post-traumatic stress disorder, unspecified; J45.909 Unspecified asthma, uncomplicated; K76.0 Fatty (change of) liver, not elsewhere classified; Z82.49 Family history of ischemic heart disease and other diseases of the circulatory system; Z82.5 Family history of asthma and other chronic lower respiratory diseases; Z83.3 Family history of diabetes mellitus; Z86.718 Personal history of other venous thrombosis and embolism; G47.30 Sleep apnea, unspecified; Z79.899 Other long term (current) drug therapy
CPT/HCPCS: 36415; 71046; 76705; 78227; 80053; 82550; 83690; 83735; 83880; 84443; 84484; 85025; 85379; 85610; 85730; 88304; 93005; 93306; 93312; 93320; 93325; 94640; 94760; 96374; 96375; 99285; 99406